=== PATIENT | female | born 2000 | race Caucasian/White ===

== ENCOUNTER 2018-08-29 | Emergency (ER) | payer SELFPAY ==
--- NOTE | 2018-08-29 09:14 | ULT ---
PRELIMINARY REPORT/[facility]/EMERGENCY AFTER HOURS PROCEDURE: EXAM: US , Transvaginal and US Duplex Artery and Vein, Ovaries, Complete EXAM DATE/TIME: 08/29/2018 12:57 AM CLINICAL HISTORY: 18 years old, female; Pain; Other: Vag bleeding, pelvic pain, qhcg 25; Gestational age or lmp: Approx 4wks; TECHNIQUE: Real-time transvaginal obstetrical ultrasound of the maternal pelvis and a first trimester with image documentation.Transvaginal imaging was used for better evaluation of the fetus and adnexa. Real-time duplex ultrasound scan of the arterial and venous flow of the ovaries with B-mode, color Doppler flow and spectral waveform analysis, Complete Duplex. COMPARISON: No relevant prior studies available. FINDINGS: Transvaginal obstetrical ultrasound was performed. Duplex ultrasound scan with color Doppler flow and spectral waveform analysis was also performed for evaluation of pelvic and ovarian blood flow and to rsion. Gestation: No gestational sac visualized. Uterus/cervix: No acute findings. No myometrial mass. Right adnexa: No acute findings. No mass. Normal duplex of the ovary. No evidence of torsion. Left adnexa: No acute findings. No mass. Normal duplex of the ovary. No evidence of torsion. Free fluid: No free fluid. IMPRESSION: of unknown location. Differential diagnosis includes early intrauterine , failed p regnancy, ectopic . Recommend close followup with serial beta-hCG and ultrasound. Thank you for allowing us to participate in the care of your patient. Dictated and Authenticated by: aSmson Chaney MD 08/29/2018 2:39 AM Central Time ([place] & [place]) FINAL REPORT BY DR. [facility] AFTER HOURS STUDY ULTRASOUND TRANSVAGINAL DOPPLER DUPLEX: DATE: 08/29/18 TIME: 0122 hours HISTORY: 18-year-old female with vaginal bleeding and pelvic pain. TECHNIQUE: Endovaginal transducer was used to evaluate intrapelvic contents, with fung scale, color flow, and sp ectral analysis. FINDINGS: Endometrial stripe: 0.6 cm (6 mm). No evidence of intrauterine gestational sac. No free fluid in the cul-de-sac or adnexa. Uterus: 7 x 3 x 4.5 cm. No leiomyoma identified. Right ovary: 3 x 1.5 x 2.5 cm. Left ovary: 2.5 x 1.5 x 3.5 cm. No ovarian cyst. Blood flow demonstrated in both ovaries by Doppler. This report agrees with the preliminary report by Elisha. IMPRESSION: Normal transvaginal ultrasound. POS: [facility]
== END 2018-08-29 03:07 | disposition home or self-care (01) ==
LOC: ERS
DX: O20.0 Threatened abortion (principal); O99.341 Other mental disorders complicating pregnancy, first trimester; F41.9 Anxiety disorder, unspecified; F32.9 Major depressive disorder, single episode, unspecified; O99.331 Smoking (tobacco) complicating pregnancy, first trimester; Z3A.01 Less than 8 weeks gestation of pregnancy
CPT/HCPCS: 76856

== ENCOUNTER 2019-02-16 13:37 | Emergency (ER) | payer SELFPAY ==
[2019-02-16 14:09] LABS: #Basophils 0.1 thou/uL (0.0-0.2); #Eosinphils 0.2 thou/uL (0.0-0.7); #Lymphocytes 2.4 thou/uL (1.20-3.40); #Monocytes 0.5 thou/uL (0.11-0.59); #Neutrophils 4.9 thou/uL (1.40-6.50); %Basophils 0.7 % (0.0-1.0); %Eosinophils 2.9 % (0.0-10.0); %Lymphocytes 29.6 % (28.0-48.0); %Monocytes 5.7 % (0.0-4.0); %Neutrophils 61.1 % (31.0-61.0); Hemoglobin 12.7 g/dL (12.0-16.0); Mean Corpuscular HGB CONC 33.8 g/dL (32.0-36.0); Mean Corpuscular Hemoglobin 30.3 pg (25.0-35.0); Mean Corpuscular Volume 89.7 fL (78.0-98.0); Mean Platelet Volume 9.5 fL (7.4-10.4); Platelet Count 212 thou/uL (130-400)
[2019-02-16 14:10] LABS: Bilirubin Negative (Negative); Blood, Urine Large (Negative); Clarity TURBID (Clear); Glucose, Urine (Dipstick) Negative (Negative); Leukocyte Small (Negative); Nitrite Negative (Negative); Protein, Urine (Dipstick) Negative (Neg-Trace); Specific Gravity, Urine 1.026 (1.002-1.036)
[2019-02-16 14:12] LABS: Bacteria/HPF None Seen HPF (None Seen); Hyaline Casts/LPF 0-3 HYALINE CAST LPF (0-3 Hyaline); Pathc Cast-AUWi Flag 0.54 (0-2.49); RBC/HPF GREATER THAN 50-TNTC HPF (0-3)
== END 2019-02-16 14:51 | disposition home or self-care (01) ==
LOC: ERS 13:37
DX: O20.0 Threatened abortion (principal); O99.341 Other mental disorders complicating pregnancy, first trimester; F41.9 Anxiety disorder, unspecified; F32.9 Major depressive disorder, single episode, unspecified; O99.331 Smoking (tobacco) complicating pregnancy, first trimester; Z3A.01 Less than 8 weeks gestation of pregnancy
CPT/HCPCS: 36415; 81003; 81015; 84702; 85025

== ENCOUNTER 2022-07-13 03:38 | Emergency (ER) | payer MEDICAID ==
[2022-07-13] MEDS ORDERED: Dexamethasone 4 MG TAB ONE (05:15)
[2022-07-13] MEDS ORDERED: Ibuprofen 200 MG TAB ONE (05:15)
== END 2022-07-13 05:19 | disposition home or self-care (01) ==
LOC: ERS 03:38
DX: J06.9 Acute upper respiratory infection, unspecified (principal)
CPT/HCPCS: 99283; J8540

== ENCOUNTER 2022-08-18 16:46 | Emergency (ER) | payer BC, MEDICAID, OTHER ==
[2022-08-18] MEDS ORDERED: Acetaminophen 500 MG TAB ONE (17:39)
== END 2022-08-18 17:45 | disposition home or self-care (01) ==
LOC: ERS 16:46
DX: J11.1 Influenza due to unidentified influenza virus with other respiratory manifestations (principal)
CPT/HCPCS: 99283

== ENCOUNTER 2022-10-13 14:53 | Emergency (ER) | payer BC, OTHER ==
[2022-10-13 17:24] LABS: SARS-CoV-2 NAA Rapid Test Not Detected (NotDetected)
== END 2022-10-13 17:00 | disposition home or self-care (01) ==
LOC: ERS 14:53
DX: J11.1 Influenza due to unidentified influenza virus with other respiratory manifestations (principal); Z20.822 Contact with and (suspected) exposure to COVID-19
CPT/HCPCS: 99283

== ENCOUNTER 2022-10-14 01:14 | Emergency (ER) | payer BC, OTHER ==
[2022-10-14] MEDS ORDERED: Acetaminophen 500 MG TAB ONE (01:49)
[2022-10-14] MEDS ORDERED: Ondansetron PF 4 MG/2 ML Vial ONE (01:49)
[2022-10-14 02:50] LABS: ALT (SGPT) 15 U/L (8-55); AST (SGOT) 32 U/L (5-34); Albumin 3.3 g/dL (3.5-5.0); Alkaline Phosphatase 51 U/L (40-110); Anion Gap 15 mmol/L (10-20); BUN (Urea Nitrogen) 7 mg/dL (7.0-18.7); Bilirubin, Total 0.2 mg/dL (0.2-1.2); Calc. Creatinine Clearance 0 mL/min (70-130); Calcium 8.7 mg/dL (7.8-10.44); Carbon Dioxide 19 mmol/L (22-29); Chloride 104 mmol/L (98-107); Estimated GFR 124; Globulin 3.8 g/dL (2.4-3.5); Glucose 137 mg/dL (70-105); Potassium 3.9 mmol/L (3.5-5.1); Protein, Total 7.1 g/dL (6.0-8.3); Sodium 134 mmol/L (136-145)
[2022-10-14 02:53] LABS: Bilirubin Negative (Negative); Blood, Urine Negative (Negative); Clarity Clear (Clear); Glucose, Urine (Dipstick) Normal (Negative); Ketone, Urine Negative (Negative); Leukocyte Negative Leu/uL (Negative); Nitrite Negative (Negative); Protein, Urine (Dipstick) Negative (Neg-Trace); Specific Gravity, Urine 1.017 (1.002-1.036); Urobilinogen Normal mg/dL (Less than 2); pH, Urine 6.5 (5.0-9.0)
[2022-10-14 02:54] LABS: #Lymphocytes 0.4 thou/uL (1.20-3.40); #Monocytes 0.4 thou/uL (0.11-0.59); #Neutrophils 5.2 thou/uL (1.40-6.50); %Basophils 0.3 % (0.0-1.0); %Eosinophils 0.6 % (0.0-10.0); %Monocytes 7.2 % (0.0-10.0); %Neutrophils 84.9 % (42.0-75.0); Hemoglobin 11.8 g/dL (12.0-16.0); Mean Corpuscular HGB CONC 33.5 g/dL (32.0-36.0); Mean Corpuscular Hemoglobin 28.8 pg (27.0-31.0); Platelet Count 153 10x3/uL (130-400); Red Blood Cell (RBC) Count 4.09 mill/uL (4.20-5.40); White Blood Cell (WBC) Count 6.2 10x3/uL (4.8-10.8)
== END 2022-10-14 04:00 | disposition home or self-care (01) ==
LOC: ERS 01:14
DX: O23.41 Unspecified infection of urinary tract in pregnancy, first trimester (principal); Z3A.10 10 weeks gestation of pregnancy
CPT/HCPCS: 71045; 80053; 81003; 85025; 93005; J2405

== ENCOUNTER 2022-12-25 07:47 | Outpatient (CLI) | payer BC, OTHER | END 2022-12-25 07:48 | disposition home or self-care (01) | LOC: BICULT 07:47 | PROVIDERS: ATTEND Family Medicine | DX: O09.892 Supervision of other high risk pregnancies, second trimester (principal); Z3A.21 21 weeks gestation of pregnancy | CPT/HCPCS: 76805 ==

== ENCOUNTER 2024-03-01 21:24 | Emergency (ER) | payer BC, OTHER, SELFPAY | END 2024-03-01 23:38 | disposition left against medical advice (07) | LOC: ERS 21:24 | DX: Z53.21 Procedure and treatment not carried out due to patient leaving prior to being seen by health care provider (principal) ==